=== PATIENT | male | born 1965 | race Caucasian/White ===

== ENCOUNTER 2018-03-24 01:44 | Emergency (ER) | payer SELFPAY ==
[~2018-03-24] VITALS: Ht 180.3 cm; Wt 127.3 kg
[2018-03-24] MEDS ORDERED: ONDANSETRON 4MG/2ML VIAL (J2405) IV ONE ×2 (02:00→03:00)
[2018-03-24] MEDS ORDERED: KETOROLAC 30 MG/ML VIAL (J1885) IV ONE (02:00)
[2018-03-24 02:48] LABS: HEMATOCRIT 44.7 % (42.0-52.0); HEMOGLOBIN 15.7 g/dl (13.5-17.5); MEAN CORPUSCULAR HEMOGLOBIN 30.1 pg (27.0-33.0); MEAN CORPUSCULAR HGB CONC 35.1 g/dl (32.0-36.5); MEAN CORPUSCULAR VOLUME 85.8 fl (80.0-96.0); PLATELET COUNT, AUTOMATED 200 10^3/uL (150-450); RED BLOOD COUNT 5.21 10^6/uL (4.30-6.10); WHITE BLOOD COUNT 10.9 10^3/uL (4.0-10.0)
--- NOTE | 2018-03-24 02:53 | REPVR ---
EXAM: CT Abdomen and Pelvis Without Contrast EXAM DATE/TIME: 03/24/2018 2:00 AM CLINICAL HISTORY: 52 years old, male; Pain; Abdominal pain; Flank; Right; Additional info: Right renal colic TECHNIQUE: Axial computed tomography images of the abdomen and pelvis without contrast. All CT scans at this facility use at least one of these dose optimization techniques: automated exposure control; mA and/or kV adjustment per patient size (includes targeted exams where dose is matched to clinical indication); or iterative reconstruction. Coronal and sagittal reformatted images were created and reviewed. COMPARISON: No relevant prior studies available. FINDINGS: Lower thorax: No acute findings. ABDOMEN: Liver: Diffuse fatty infiltration of the liver with areas of sparing around the gallbladder fossa. Gallbladder and bile ducts: Normal. No calcified stones. No ductal dilation. Pancreas: Normal. No ductal dilation. Spleen: Normal. No splenomegaly. Adrenals: Normal. No mass. Kidneys and ureters: 2 mm obstructing stone in the right ureterovesical junction/bladder base causing mild right-sided hydroureteronephrosis. No other renal stones are seen on the right side. Nonobstructing 4 mm stone in the interpolar region of the left kidney. Left renal cysts, largest one is in the lower pole measuring approximately 4.3 x 5.5 cm. Stomach and bowel: Few scattered colonic diverticula without CT evidence of diverticulitis. Appendix: Normal appendix. PELVIS: Bladder: See above. Reproductive: Prostate calcifications. ABDOMEN and PELVIS: Intraperitoneal space: Normal. No free air. No significant fluid collection. Bones/joints: Levoscoliosis of the lumbar spine. Soft tissues: Unremarkable. Vasculature: Minimal atherosclerosis. Lymph nodes: Normal. No enlarged lymph nodes. IMPRESSION: 2 mm obstructing stone in the right ureterovesical junction/bladder base causing mild right-sided hydroureteronephrosis. No other renal stones are seen on the right side. Nonobstructing 4 mm stone in the interpolar region of the left kidney. Electronically signed by: Inessa Harry On 03/24/2018 02:52:43 AM
[2018-03-24] MEDS ORDERED: MORPHINE 4 MG/ML 1ML VIAL/SYRINGE (J2270) IV PRN (03:00)
[2018-03-24] MEDS ORDERED: TAMSULOSIN 0.4 MG CAP PO ONE (03:00)
[2018-03-24 03:07] LABS: CALCIUM LEVEL 8.8 MG/DL (8.5-10.1); CREATININE FOR GFR 1.5 MG/DL (0.70-1.30); GLOMERULAR FILTRATION RATE 52.5 (>56); POTASSIUM SERUM 3.4 MEQ/L (3.5-5.1)
[2018-03-24] MEDS ORDERED: METOCLOPRAMIDE INJ 10MG/2ML VIAL (J2765) As Ordered ONE (04:43)
[2018-03-24] MEDS ORDERED: METOCLOPRAMIDE INJ 10MG/2ML VIAL (J2765) IV ONE (04:45)
[2018-03-24] MEDS ORDERED: NORCO 5/325MG TABLET (BULK FOR ED) PO ONE (05:30)
[2018-03-24 05:55] LABS: HEMOGLOBIN A1c 6.3 %
[2018-03-24] MEDS ORDERED: FLOM0.4C39 PO (06:06)
[2018-03-24] MEDS ORDERED: ONDA4TAB6 PO (06:06)
[2018-03-24] MEDS ORDERED: NORCOTAB PO (06:06)
[2018-03-24 06:35] VITALS: BP 148/75
== END 2018-03-24 06:39 | disposition home or self-care (01) ==
LOC: M ED 01:44
DX: N20.1 Calculus of ureter (principal); N28.1 Cyst of kidney, acquired; R73.03 Prediabetes
CPT/HCPCS: 74176; 80048; 81001; 83036; 85027; 96374; 96375; 96376; 99284; J1885; J2270; J2405; J2765

== ENCOUNTER → 2018-05-04 | Outpatient (REF) | payer SELFPAY ==
[~2018-05-04] MED LIST: FLOM0.4C39 PO; NORCOTAB PO; ONDA4TAB6 PO
[2018-05-04 14:26] LABS: APPEARANCE, URINE CLEAR (CLEAR); BACTERIA, URINE AUTO NEGATIVE (NEGATIVE); BILIRUBIN, URINE AUTO NEGATIVE (NEGATIVE); BLOOD, URINE BLOOD 1+ (NEGATIVE); COLOR, URINE YELLOW (YELLOW); GLUCOSE, URINE (UA) AUTO NEGATIVE (NEGATIVE); KETONE, URINE AUTO NEGATIVE (NEGATIVE); LEUKOCYTE ESTERASE, URINE AUTO NEGATIVE (NEGATIVE); MUCUS, URINE SMALL (NEGATIVE); NITRITE, URINE AUTO NEGATIVE (NEGATIVE); PROTEIN, URINE AUTO NEGATIVE (NEGATIVE); RBC, URINE AUTO 11 /HPF (0-3); SPECIFIC GRAVITY URINE AUTO 1.025 (1.002-1.035); SQUAMOUS EPITHELIAL CELL UR AU 0 /HPF (0-6); WBC, URINE AUTO 3 /HPF (0-3)
== END ==
LOC: M SMT 13:43
PROVIDERS: ATTEND Nurse Practitioner Family
DX: N20.0 Calculus of kidney (principal)

== ENCOUNTER → 2018-05-04 | Outpatient (CLI) | payer SELFPAY ==
[2018-05-04 13:42] LABS: BLOOD UREA NITROGEN 16 MG/DL (7-18); CALCIUM LEVEL 8.7 MG/DL (8.5-10.1); CARBON DIOXIDE LEVEL 32 MEQ/L (21-32); CHLORIDE LEVEL 105 MEQ/L (98-107); CREATININE FOR GFR 1.06 MG/DL (0.70-1.30); GLOMERULAR FILTRATION RATE > 60.0 (>56); GLUCOSE, FASTING 91 MG/DL (70-100); POTASSIUM SERUM 4.1 MEQ/L (3.5-5.1); SODIUM LEVEL 141 MEQ/L (136-145)
== END ==
LOC: M SMT 10:22
PROVIDERS: ATTEND Nurse Practitioner Family
DX: R79.89 Other specified abnormal findings of blood chemistry (principal)